=== PATIENT | female | born 1980 | race Caucasian/White ===

== ENCOUNTER → 2018-07-06 | Day surgery (SDC) | payer BC ==
[~2018-07-06] MED LIST: BENZOCAINE 20% AEROSOL SPRAY 60 GM ONE; LIDOCAINE 2% JELLY 5 ML TUBE ONE
== END ==
LOC: END 07:56
PROVIDERS: ATTEND Surgery
DX: K21.9 Gastro-esophageal reflux disease without esophagitis (principal)
CPT/HCPCS: 91010; J3490